=== PATIENT | female | born 2000 | race Caucasian/White ===

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

== ENCOUNTER 2019-02-26 09:27 | Emergency (ER) | payer OTHER ==
[2019-02-26 09:58] VITALS: BP 106/65
--- NOTE | 2019-02-26 10:20 | UC ---
Complaint Female HPI - HPI Summary HPI Summary: Urinary frequency and burning over the past few days. Denies any fever or chills. Patient is sexually active however denies any abnormal vaginal discharge. - History Of Current Complaint Chief Complaint: UCGU Stated Complaint: URINARY Time Seen by Provider: 02/26/19 10:11 Hx Obtained From: Patient Hx Last Menstrual Period: 02/26/17 ?: No Onset/Duration: Gradual Onset Timing: Intermittent Severity Initially: Mild Severity Currently: Moderate Pain Intensity: 5 Character: Burning Aggravating Factor(s): Urination Alleviating Factor(s): Nothing Associated Signs And Symptoms: Positive: Negative - Allergies/Home Medications Allergies/Adverse Reactions: Allergies Allergy/AdvReac Type Severity Reaction Status Date / Time sulfamethoxazole Allergy Mild Rash And Verified 02/26/19 09:58 [From Bactrim] Itching trimethoprim [From Bactrim] Allergy Mild Rash And Verified 02/26/19 09:58 Itching PMH/Surg Hx/FS Hx/Imm Hx Previously Healthy: Yes - Surgical History Surgical History: None - Family History Known Family History: Positive: Non-Contributory - Social History Occupation: Student Lives: Dormitory/Roommates Alcohol Use: Weekly Substance Use Type: Marijuana Substance Use Comment - Amount & Last Used: occasionally Smoking Status (MU): Never Smoked Tobacco - Immunization History Most Recent Influenza Vaccination: no Review of Systems All Other Systems Reviewed And Are Negative: Yes Genitourinary: Positive: Dysuria, Frequency, Urgency Is Patient Immunocompromised?: No Physical Exam Triage Information Reviewed: Yes Appearance: Well-Appearing, No Pain Distress, Well-Nourished Vital Signs: Initial Vital Signs Temp 98.0 F 02/26/19 09:53 Pulse 80 02/26/19 09:53 Resp 18 02/26/19 09:53 BP 106/65 02/26/19 09:53 Pulse Ox 100 02/26/19 09:53 Vital Signs Reviewed: Yes Respiratory: Positive: Lungs clear, Normal breath sounds, No respiratory distress, No accessory muscle use Cardiovascular: Positive: RRR, No Murmur, Pulses Normal, Brisk Capillary Refill Abdomen Description: Positive: Nontender, No Organomegaly, Soft. Negative: CVA Tenderness (R), CVA Tenderness (L), Distended, Guarding, Hepatomegaly, McBurney' s Point Tenderness, Splenomegaly Bowel Sounds: Positive: Present Musculoskeletal Exam: Normal Neurological Exam: Normal Psychological Exam: Normal Skin Exam: Normal Complaint Female Dx - Course Course Of Treatment: Urinalysis is positive for urinary tract infection. - Differential Dx/Diagnosis Provider Diagnosis: UTI (urinary tract infection) Discharge ED - Sign-Out/Discharge Documenting (check all that apply): Patient Departure All imaging exams completed and their final reports reviewed: No Studies - Discharge Plan Condition: Good Disposition: HOME Prescriptions: Nitrofurantoin Monohyd/M-Cryst [Macrobid 100 mg Capsule] 100 mg PO BID 7 Days # 14 cap Patient Education Materials: Urinary Tract Infection in Women (DC) Referrals: Non Staff,Doctor [Primary Care Provider] - NEELAM MCCLELLAND [[employer], [employer], OTHER] - Additional Instructions: Increase fluids. Follow up at the [facility] if no improvement in 3 or 4 days. Go to the emergency room if you develop fever, chills, back pain and vomiting and unable keep medicine down. - Billing Disposition and Condition Condition: GOOD Disposition: Home
== END 2019-02-26 10:29 | disposition home or self-care (01) ==
LOC: UCCORT 09:27
DX: N39.0 Urinary tract infection, site not specified (principal); Z88.2 Allergy status to sulfonamides; Z88.1 Allergy status to other antibiotic agents
CPT/HCPCS: 81003; 84702; 87077; 87086; 87186; 99212; G0463